=== PATIENT | male | born 1965 | race Two or more races ===

== ENCOUNTER → 2023-12-19 | Emergency (ER) | payer OTHER ==
[~2023-12-19] VITALS: Ht 193 cm; Wt 99.8 kg
[~2023-12-19] MED LIST: FAMOTIDINE/PF 20 MG/2 ML VIAL IV PUSH STA; METFORMIN HCL1000 M2; SYNTHROID125 MCG PO
[2023-12-19 13:32] LABS: PH,URINE 5.5 (5.0-8.0); URINE APPEARANCE Clear; URINE BILIRRUBIN Small (NEGATIVE); URINE BLOOD Moderate; URINE COLOR Dark Yellow; URINE LEUKOCYTE Negative; URINE NITRATE Negative
[2023-12-19 13:35] LABS: URINE BACTERIA 32.7 uL (0.0-1933); URINE EPITHELIAL CELLS 3.5 uL (0.0-38.8); URINE RBC 11.4 uL (0.0-20.8)
[2023-12-19 13:37] LABS: URINE GLUCOSE 100 MG/DL (NEGATIVE); URINE PROTEIN 300 (NEGATIVE); URINE WBC 1.3 uL (0.0-23.2)
[2023-12-19 13:49] LABS: CALCIUM 9.3 mg/dL (8.5-10.1); CREATININE SERUM 1.3 mg/dL (0.70-1.30); GFR 57.1; POTASSIUM 3.76 mEq/L (3.5-5.1)
[2023-12-19 13:51] LABS: HEMATOCRIT 34.3 % (39.0-48.0); HEMOGLOBIN 11.8 g/dL (13-16.00); MEAN CELL VOLUME 81.5 fL (80.0-100.00); MEAN CORPUSCULAR HEMOGLOBIN 28.1 pg (27.00-32.0); MEAN CORPUSCULAR HGB CONC 34.5 g/dl (32.0-36.0); PLATELET COUNT 153 K/uL (150-450); RED CELL DISTRIBUTION WIDTH 14.7 % (11.5-14.5)
== END | disposition home or self-care (01) ==
LOC: ER 11:11
PROVIDERS: General Practice
DX: R53.81 Other malaise (principal); Z88.0 Allergy status to penicillin; D72.819 Decreased white blood cell count, unspecified